=== PATIENT | male | born 1975 ===

== ENCOUNTER 2018-03-15 14:45 | Emergency (ER) | payer BC, OTHER ==
[~2018-03-15] VITALS: Ht 162.6 cm; Wt 90.7 kg
--- NOTE | 2018-03-15 15:31 | ED General ---
General Chief Complaint: General Problems/Pain Stated Complaint: COUGH Nursing Triage Note: AMB TO ROOM HAS NOT GONE TO WORK FOR THE LAST 3 DAYS BECAUSE HE HAD A COUGH BETTER NOW,BUT NEEDS A NOTE TO RETURN TO WORK. Nursing Sepsis Screen: No Definite Risk Source of Information: Patient Exam Limitations: No Limitations History of Present Illness Date Seen by Provider: Mar 15, 2018 Time Seen by Provider: 15:29 Initial Comments To ER with reports of a cough for the past 3 days. He's missed work for the past 3 days. He states that he try to go back to work last night but was told by his boss that he needed a note from to release him for work. No fevers or chills and he is feeling better now. Timing/Duration: 2-3 Days Severity: Moderate Associated Systoms: Cough Allergies and Home Medications Home Medications No Active Prescriptions or Reported Meds Patient Home Medication List Home Medication List Reviewed: Yes Review of Systems Review of Systems Constitutional: see HPI; No fever EENTM: see HPI Respiratory: see HPI, cough Cardiovascular: no symptoms reported Genitourinary: no symptoms reported Musculoskeletal: no symptoms reported Skin: no symptoms reported Psychiatric/Neurological: No Symptoms Reported Hematologic/Lymphatic: No Symptoms Reported Past Kyibvyf-Sgwldv-Dikbkj Hx Patient Social History Alcohol Use: Occasionally Uses Recreational Drug Use: No Smoking Status: Current Everyday Smoker Recent Foreign Travel: No Contact w/Someone Who Travel: No Recent Infectious Disease Expo: No Physical Exam Vital Signs Vital Signs - First Documented 03/15/18 15:11 Temp 96.3 Pulse 75 Resp 18 B/P (MAP) 103/65 (78) Pulse Ox 99 Capillary Refill : Less Than 3 Seconds Height, Weight, BMI Height: 5'4.00" Weight: 200lbs. oz. [id number]; BMI Method:Stated General Appearance: No Apparent Distress, WD/WN Eyes: Bilateral Eye Normal Inspection, Bilateral Eye PERRL, Bilateral Eye EOMI HEENT: PERRL/EOMI, TMs Normal Neck: Full Range of Motion, Normal Inspection Respiratory: Lungs Clear, Normal Breath Sounds, No Accessory Muscle Use, No Respiratory Distress Cardiovascular: Regular Rate, Rhythm, Normal Peripheral Pulses Gastrointestinal: Normal Bowel Sounds, Soft Extremity: Normal Capillary Refill, Normal Inspection Neurologic/Psychiatric: Alert, Oriented x3 Skin: Normal Color, Warm/Dry Progress/Results/Core Measures Suspected Sepsis Recent Fever Within 48 Hours: No Infection Criteria Present: None New/Unexplained Altered Menta: No Sepsis Screen: No Definite Risk SIRS Temperature:96.3 Pulse: 75 Respiratory Rate: 18 Blood Pressure 103 /65 Mean: 78 Results/Orders Vital Signs/I&O 03/15/18 15:11 Temp 96.3 Pulse 75 Resp 18 B/P (MAP) 103/65 (78) Pulse Ox 99 Capillary Refill : Less Than 3 Seconds Blood Pressure Mean: 78 Departure Impression Primary Impression: Cough Additional Impression: encounter for work note Disposition: 01 HOME, SELF-CARE Condition: Stable Admissions Decision to Admit Reason: Admit from ER (General) Decision to Admit/Date: Mar 15, 2018 Time/Decision to Admit Time: 15:31 Departure-Patient Inst. Referrals: NO,LOCAL PHYSICIAN (PCP/Family) Primary Care Physician Scripts No Active Prescriptions or Reported Meds NICHOLAS FRAUSTO APRN Mar 15, 2018 15:31
[2018-03-15 16:07] VITALS: BP 103/65
== END 2018-03-15 16:07 | disposition home or self-care (01) ==
LOC: ER 14:46
DX: R05 Cough (principal); F17.200 Nicotine dependence, unspecified, uncomplicated
CPT/HCPCS: 99281

== ENCOUNTER 2018-05-06 09:48 | Emergency (ER) | payer BC ==
[~2018-05-06] VITALS: Ht 162.6 cm; Wt 90.7 kg
[2018-05-06] MEDS ORDERED: inSUlin (REGULAR) HUMAN 1 UNIT/0.01 ML (CHARGE PER UNIT) SC ONE (10:45)
[2018-05-06] MEDS ORDERED: GABA-488 PO (10:46)
[2018-05-06] MEDS ORDERED: METF-397 PO (10:46)
--- NOTE | 2018-05-06 10:46 | ED Lower Extremity ---
General Chief Complaint: Lower Extremity Stated Complaint: FOOT PAIN Nursing Triage Note: ARRIVED VIA AMB TO ROOM 09. COMPLAINS OF BILAT FEET PAIN FOR A WEEK. Nursing Sepsis Screen: No Definite Risk Source: patient Exam Limitations: no limitations History of Present Illness Date Seen by Provider: May 06, 2018 Time Seen by Provider: 10:40 Initial Comments To ER with one week history of bilateral foot pain. He's had to call in to work because of this pain. No known injuries. He is healthy as far as he knows, does not have any medical problems. Does not have a physician however. Onset: last week Severity: moderate Pain/Injury Location: bilateral foot Method of Injury: unknown Allergies and Home Medications Allergies Coded Allergies: No Known Drug Allergies (Unverified , 05/06/18) Home Medications Gabapentin 300 Mg Capsule, 300 MG PO UD 300 mg once on day 1 then 300 mg twice a day on day 2 then 300 mg 3 times a day thereafter Prescribed by: NICHOLAS FRAUSTO on 05/06/18 1046 Metformin HCl 500 Mg Tablet, 500 MG PO BID Prescribed by: NICHOLAS FRAUSTO on 05/06/18 1046 Patient Home Medication List Home Medication List Reviewed: Yes Review of Systems Constitutional: see HPI EENTM: see HPI Respiratory: no symptoms reported Cardiovascular: no symptoms reported Genitourinary: no symptoms reported Musculoskeletal: no symptoms reported Skin: no symptoms reported Psychiatric/Neurological: No Symptoms Reported Past Avigaug-Revpkx-Khgizi Hx Patient Social History Alcohol Use: Denies Use Recreational Drug Use: No Smoking Status: Current Everyday Smoker Recent Foreign Travel: No Contact w/Someone Who Travel: No Recent Infectious Disease Expo: No Recent Hopitalizations: No Past Medical History Surgeries: Yes (ON HIS THROAT BUT DOES NOT REMEMBER NAME. ) Respiratory: No Cardiac: No Neurological: No Genitourinary: No Gastrointestinal: No Musculoskeletal: No Endocrine: Yes (DOES NOT TAKE MEDS. ) Diabetes, Non-Insulin dep Psychosocial: No Physical Exam Vital Signs Vital Signs - First Documented 05/06/18 10:00 Temp 98.0 Pulse 73 Resp 16 B/P (MAP) 139/80 (99) Pulse Ox 100 O2 Delivery Room Air Capillary Refill : Less Than 3 Seconds Height, Weight, BMI Height: 5'4.00" Weight: 200lbs. oz. 90.604121cx; BMI Method:Stated General Appearance: WD/WN, no apparent distress HEENT: PERRL/EOMI, normal ENT inspection Neck: non-tender, full range of motion Respiratory: no respiratory distress, no accessory muscle use Hips: bilateral hip non-tender, bilateral hip normal inspection, bilateral hip normal range of motion Legs: bilateral leg non-tender, bilateral leg normal inspection, bilateral leg normal range of motion Knees: bilateral knee non-tender, bilateral knee normal inspection, bilateral knee normal range of motion Ankles: bilateral ankle non-tender, bilateral ankle normal inspection, bilateral ankle normal range of motion Feet: bilateral foot non-tender, bilateral foot normal inspection, bilateral foot normal range of motion, bilateral foot other (strong dorsalis pedis pulse) Neurologic/Psychiatric: alert, normal mood/affect, oriented x 3 Skin: normal color, warm/dry Progress/Results/Core Measures Results/Orders Lab Results Laboratory Tests Test 05/06/18 10:13 05/06/18 10:35 05/06/18 10:45 Range/Units Glucometer 434 *H 70-110 MG/DL Beta-Hydroxybutyrate (Chem panel) 0.08 0.00-0.27 MMOL/L White Blood Count 7.8 4.3-11.0 10^3/uL Red Blood Count 5.63 4.35-5.85 10^6/uL Hemoglobin 16.2 13.3-17.7 G/DL Hematocrit 46 40-54 % Mean Corpuscular Volume 81 80-99 FL Mean Corpuscular Hemoglobin 29 25-34 PG Mean Corpuscular Hemoglobin Concent 36 32-36 G/DL Red Cell Distribution Width 12.4 10.0-14.5 % Platelet Count 177 130-400 10^3/uL Mean Platelet Volume 11.4 H 7.4-10.4 FL Neutrophils (%) (Auto) 65 42-75 % Lymphocytes (%) (Auto) 25 12-44 % Monocytes (%) (Auto) 6 0-12 % Eosinophils (%) (Auto) 4 0-10 % Basophils (%) (Auto) 1 0-10 % Neutrophils # (Auto) 5.1 1.8-7.8 X 10^3 Lymphocytes # (Auto) 2.0 1.0-4.0 X 10^3 Monocytes # (Auto) 0.4 0.0-1.0 X 10^3 Eosinophils # (Auto) 0.3 0.0-0.3 10^3/uL Basophils # (Auto) 0.0 0.0-0.1 10^3/uL Sodium Level 131 L 135-145 MMOL/L Potassium Level 4.3 3.6-5.0 MMOL/L Chloride Level 98 98-107 MMOL/L Carbon Dioxide Level 23 21-32 MMOL/L Anion Gap 10 5-14 MMOL/L Blood Urea Nitrogen 16 7-18 MG/DL Creatinine 1.31 H 0.60-1.30 MG/DL Estimat Glomerular Filtration Rate 60 BUN/Creatinine Ratio 12 Glucose Level 448 *H 70-105 MG/DL Calcium Level 9.7 8.5-10.1 MG/DL Corrected Calcium 9.7 8.5-10.1 MG/DL Total Bilirubin 0.3 0.1-1.0 MG/DL Aspartate Amino Transf (AST/SGOT) 22 5-34 U/L Alanine Aminotransferase (ALT/SGPT) 27 0-55 U/L Alkaline Phosphatase 114 40-136 U/L Total Protein 7.2 6.4-8.2 GM/DL Albumin 4.0 3.2-4.5 GM/DL My Orders Orders - NICHOLAS FRAUSTO MOLDER SWEEP Cbc With Automated Diff (05/06/18 10:29) Comprehensive Metabolic Panel (05/06/18 10:29) Hemoglobin A1c (05/06/18 10:30) Insulin (Regular) Human (Humulin R (Per (05/06/18 10:45) Beta Hydroxybutyrate (05/06/18 10:46) Medications Given in ED Current Medications Medications Dose Ordered Sig/Latoya Route Start Time Stop Time Status Last Admin Dose Admin Insulin Human Regular 8 unit ONCE ONCE SC 05/06/18 10:45 05/06/18 10:46 DC 05/06/18 11:05 8 UNIT Vital Signs/I&O 05/06/18 10:00 Temp 98.0 Pulse 73 Resp 16 B/P (MAP) 139/80 (99) Pulse Ox 100 O2 Delivery Room Air Blood Pressure Mean: 99 FSBG Bedside Testing Finger Stick Blood Glucose: 434 Blood Glucose Action Taken: NOTIFIED. Departure Communication (Admissions) Patient's blood sugar was checked and found to be 434. He does not know himself to be diabetic. Impression Primary Impression: Diabetic neuropathy Qualified Codes: E13.41 - Other specified diabetes mellitus with diabetic mononeuropathy Additional Impression: Diabetes mellitus Qualified Codes: E13.65 - Other specified diabetes mellitus with hyperglycemia Disposition: 01 HOME, SELF-CARE Condition: Stable Departure-Patient Inst. Decision time for Depature: 10:43 Referrals: JOÃO PAULA MD NO,LOCAL PHYSICIAN (PCP) Primary Care Physician Patient Instructions: DIABETES, Diabetes Diet , Diabetic Neuropathy Add. Discharge Instructions: 1. Call [facility] today to make an appointment to be seen for follow-up. Medication as directed. All discharge instructions reviewed with patient and/or family. Voiced understanding. Scripts Metformin HCl (Metformin HCl) 500 Mg Tablet 500 MG PO BID, #60 TAB Prov: NICHOLAS FRAUSTO APRN 05/06/18 Gabapentin (Gabapentin) 300 Mg Capsule 300 MG PO UD, #60 CAP 300 mg once on day 1 then 300 mg twice a day on day 2 then 300 mg 3 times a day thereafter Prov: NICHOLAS FRAUSTO APRN 05/06/18 Work/School Note: Work Release Form Date Seen in the Emergency Department: May 06, 2018 Return to Work: May 07, 2018 Copy Copies To 1: JOÃO PAULA MD, PETER J APRN May 06, 2018 10:46
[2018-05-06 10:49] LABS: BASOPHILS % (AUTO) 1 % (0-10); EOSINOPHILS # (AUTO) 0.3 10^3/uL (0.0-0.3); EOSINOPHILS % (AUTO) 4 % (0-10); HEMATOCRIT 46 % (40-54); HEMOGLOBIN 16.2 G/DL (13.3-17.7); LYMPHOCYTES % (AUTO) 25 % (12-44); MEAN CORPUSCULAR HEMOGLOBIN 29 PG (25-34); MEAN CORPUSCULAR HGB CONC 36 G/DL (32-36); MEAN CORPUSCULAR VOLUME 81 FL (80-99); MEAN PLATELET VOLUME 11.4 FL (7.4-10.4); MONOCYTES # (AUTO) 0.4 X 10^3 (0.0-1.0); MONOCYTES % (AUTO) 6 % (0-12); NEUTROPHILS # (AUTO) 5.1 X 10^3 (1.8-7.8); NEUTROPHILS % (AUTO) 65 % (42-75); PLATELET COUNT 177 10^3/uL (130-400); RED CELL DISTRIBUTION WIDTH 12.4 % (10.0-14.5); WHITE BLOOD COUNT 7.8 10^3/uL (4.3-11.0)
[2018-05-06 11:10] LABS: BILIRUBIN,TOTAL 0.3 MG/DL (0.1-1.0); CALCIUM 9.7 MG/DL (8.5-10.1); CREATININE SERUM 1.31 MG/DL (0.60-1.30); POTASSIUM 4.3 MMOL/L (3.6-5.0); TOTAL PROTEIN 7.2 GM/DL (6.4-8.2)
[2018-05-06 11:40] VITALS: BP 115/75
== END 2018-05-06 11:40 | disposition home or self-care (01) ==
LOC: EDUNIT# 09:48 → ER 09:49
DX: E11.40 Type 2 diabetes mellitus with diabetic neuropathy, unspecified (principal); F17.200 Nicotine dependence, unspecified, uncomplicated; Z79.84 Long term (current) use of oral hypoglycemic drugs
CPT/HCPCS: 36415; 80053; 82010; 82962; 83036; 85025